=== PATIENT | female | born 1970 | race Caucasian/White ===

== ENCOUNTER → 2018-07-25 12:34 | Outpatient (CLI) | payer OTHER, SELFPAY ==
--- NOTE | 2018-07-25 | DI.MRI.S_ITS ---
PROCEDURE: MR HAND LT WO/W CON INDICATIONS: Other specified soft tissue disorders TECHNIQUE: Noncontrast coronal T1 spin echo and STIR, sagittal T1 spin echo with fat saturation and STIR, axial T1 spin echo and T2 fast spin echo with fat saturation. After the administration of contrast, axial/sagittal/coronal T1 spin echo with fat saturation through the left hand. COMPARISON: None. FINDINGS: Image quality: Excellent. Bones: The visualized bone marrow demonstrates normal signal on all sequences. The overlying cortex appears intact. Severe first MCP joint degeneration. Subluxed appearance of the first MCP joint, likely chronic. Soft tissues: At the base of the thumb, there is somewhat loculated appearing small fluid collection adjacent to the flexor pollicis longus tendon, for example image 19 series 8, image 10 series 10. No discernible associated enhancement to suggest solid nature. This measures approximately 3 x 3 mm short axis and 12 mm long axis, centered about the first MCP joint line. Additional partially visualized multiloculated presumed ganglion cyst along the palmar aspect of the distal radial cortex image 45 series 8. No definite enhancement and this likely represents additional ganglion cyst. This measures 4 x 11 mm on image 45 series 8. IMPRESSION: Cystic appearing lesion along the flexor pollicis longus tendon, about the level of the first MCP joint, presumably ganglion cyst versus loculated tenosynovitis fluid. Additional partially visualized presumed ganglion cyst along the palmar/volar cortex of the distal radius. No suspicious enhancement. Severe first MCP joint degeneration. Dictated by: Jose Matos M.D. on 07/25/2018 at 14:57 Approved by: Jose Matos M.D. on 07/25/2018 at 15:05
== END ==
PROVIDERS: PCP Orthopaedic Surgery; Visit Provider Orthopaedic Surgery
DX: M79.89 Other specified soft tissue disorders (principal); M19.042 Primary osteoarthritis, left hand
CPT/HCPCS: 73220